=== PATIENT | male | born 1965 | race Caucasian/White ===

== ENCOUNTER 2018-12-04 17:13 | Emergency (ER) | payer SELFPAY ==
[~2018-12-04] VITALS: Ht 193 cm; Wt 181.4 kg
[2018-12-04] MEDS ORDERED: NORCO 5-325 TA1 EACH PO (17:32)
[2018-12-04] MEDS ORDERED: AMOXICILLIN500 MG PO (17:32)
== END 2018-12-04 17:40 | disposition home or self-care (01) ==
LOC: ED 17:13
DX: K08.89 Other specified disorders of teeth and supporting structures (principal); F17.200 Nicotine dependence, unspecified, uncomplicated
CPT/HCPCS: 99282